=== PATIENT | female | born 1990 | race Asian ===

== ENCOUNTER 2024-10-04 11:02 | Emergency (ER) | payer OTHER ==
[~2024-10-04] VITALS: Ht 162.6 cm; Wt 82.0 kg
[2024-10-04] MEDS: AZITHROMYCIN 500MG/250ML 250 ML IV ONE (11:45)
[2024-10-04] MEDS: SODIUM CHLORIDE 0.9% (SEPSIS BOLUS) IV ONE (12:18)
[2024-10-04] MEDS: ALBUTEROL (0.083%) 2.5MG/3ML NEB HHN STA (12:28)
[2024-10-04 12:29] VITALS: PULSE 89; RESP 20; O2SAT 97
[2024-10-04] MEDS: ACETAMINOPHEN 325MG TABLET PO STA (12:29)
[2024-10-04] MEDS: CEFTRIAXONE 1GM/50ML 50 ML IV ONE (12:36)
[2024-10-04 12:41] LABS: BASOPHILS % 0.3 % (0.0-2.0); EOSINOPHILS % 0.5 % (0.0-5.0); HEMATOCRIT. 41.1 % (36.0-48.0); HEMOGLOBIN. 13.4 g/dL (12.0-16.0); LYMPHOCYTES % 12.3 % (20.0-50.0); MEAN CORPUSCULAR HEMOGLOBIN 26.8 pg (28.0-32.0); MEAN CORPUSCULAR HGB CONC 32.6 g/dL (31.0-37.0); MEAN CORPUSCULAR VOLUME 82.2 fL (81.0-99.0); MEAN PLATELET VOLUME 7.3 fl (7.4-10.4); MONOCYTES % 4.7 % (2.0-8.0); NEUTROPHILS % 82.2 % (40.0-76.0); PLATELET 440 x1000/uL (130-400); RED CELL DISTRIBUTION WIDTH 13.5 % (11.6-14.6); WHITE BLOOD COUNT 17.2 x1000/uL (4.5-11.0)
[2024-10-04 12:44] LABS: CLARITY URINE CLOUDY (CLEAR); COLOR URINE YELLOW (YELLOW); GLUCOSE URINE NEGATIVE (NEGATIVE); KETONES URINE NEGATIVE (NEGATIVE); LEUKOCYTE ESTERASE URINE 1+ (NEGATIVE); NITRITE URINE POSITIVE (NEGATIVE); OCCULT BLOOD URINE 1+ (NEGATIVE); PROTEIN URINE TRACE (NEGATIVE); SPECIFIC GRAVITY URINE 1.019 (1.005-1.030)
[2024-10-04 12:45] LABS: CHLORIDE 99 mEq/L (98-107); POTASSIUM 3.9 mEq/L (3.5-5.1); SODIUM 136 mEq/L (136-145)
[2024-10-04 12:46] LABS: CALCIUM 9.5 mg/dL (8.7-10.4); CARBON DIOXIDE 27 mEq/L (21-32)
[2024-10-04 12:51] LABS: CREATININE 0.8 mg/dL (0.6-1.0); GLUCOSE 137 mg/dL (70-105); UREA NITROGEN BLOOD 6 mg/dL (9-23)
[2024-10-04 13:11] LABS: INFLUENZA TYPE A Presumptive Negative (Pres. Neg.); INFLUENZA TYPE B Presumptive Negative (Pres. Neg.)
[2024-10-04 13:12] LABS: RESPIRATORY SYNCYTIAL VIRUS Not Detected (Not Detectd)
[2024-10-04 13:38] LABS: SQUAMOUS EPITHELIAL CELL URINE 2+ /lpf (RARE/1+)
[2024-10-04 13:39] LABS: BACTERIA URINE 4+; RBC URINE 0-2 /hpf (0-2)
[2024-10-04] MEDS ORDERED: DOXY100T2 MT (14:44)
[2024-10-04] MEDS ORDERED: AMOX1TAB16 MT (14:44)
[2024-10-04 15:54] VITALS: BP 151/83; PULSE 99; RESP 22; TEMP 37; O2SAT 95
== END 2024-10-04 16:03 | disposition home or self-care (01) ==
LOC: ER 11:02
DX: J18.9 Pneumonia, unspecified organism (principal); N39.0 Urinary tract infection, site not specified; R06.02 Shortness of breath; I49.9 Cardiac arrhythmia, unspecified; Z20.822 Contact with and (suspected) exposure to COVID-19; Z98.890 Other specified postprocedural states
CPT/HCPCS: 80048; 81003; 83605; 85025; 85379; 87420; 87804 ×2; 36415; 84145; 71045; 94640; 93005; 98960; 96368; 96365; 96366; 99285; 87426; J0456; J0696; Z7610; J7030; 94070